=== PATIENT | female | born 1940 | race Caucasian/White ===

== ENCOUNTER 2017-03-12 11:33 | Emergency (ER) | payer MEDICARE, MEDICAID ==
[~2017-03-12] VITALS: Ht 157.5 cm; Wt 66.7 kg
--- NOTE | 2017-03-12 11:33 | NUR ---
PAIN TO R FOOT X 1 WEEK S/P WALKING UP STAIRS, WORSENING 2 DAYS [employer]. NAD NOTED. PT AAO X4, AMB WITH STEADY GAIT. RR EVEN AND UNLABORED. PENDING MD MOE.
--- NOTE | 2017-03-12 12:20 | NUR ---
XR AT BEDSIDE
[2017-03-12 12:51] VITALS: BP 127/75
== END 2017-03-12 13:29 | disposition home or self-care (01) ==
LOC: ER 11:35
DX: S93.601A Unspecified sprain of right foot, initial encounter (principal); X58.XXXA Exposure to other specified factors, initial encounter; Y93.01 Activity, walking, marching and hiking; Y92.89 Other specified places as the place of occurrence of the external cause; Y99.8 Other external cause status
CPT/HCPCS: 73630-TC; A4606